=== PATIENT | male | born 1980 | race Caucasian/White ===

== ENCOUNTER → 2024-04-21 12:03 | Outpatient (BNVA) | payer OTHER, SELFPAY | PROVIDERS: Visit Provider Registered Nurse | DX: S86.911A Strain of unspecified muscle(s) and tendon(s) at lower leg level, right leg, initial encounter (principal); X58.XXXA Exposure to other specified factors, initial encounter | CPT/HCPCS: 99203 ==

== ENCOUNTER → 2024-04-26 09:47 | Outpatient (BNVA) | payer OTHER, SELFPAY | PROVIDERS: Visit Provider Registered Nurse | DX: S86.211A Strain of muscle(s) and tendon(s) of anterior muscle group at lower leg level, right leg, initial encounter (principal); X58.XXXA Exposure to other specified factors, initial encounter | CPT/HCPCS: 99214 ==

== ENCOUNTER → 2024-05-10 14:40 | Outpatient (BNVA) | payer OTHER, SELFPAY | PROVIDERS: PCP Specialist; Visit Provider Registered Nurse | DX: S86.911D Strain of unspecified muscle(s) and tendon(s) at lower leg level, right leg, subsequent encounter (principal); S93.401D Sprain of unspecified ligament of right ankle, subsequent encounter; X58.XXXD Exposure to other specified factors, subsequent encounter | CPT/HCPCS: 99213 ==

== ENCOUNTER → 2024-05-26 15:01 | Outpatient (BNVA) | payer OTHER, SELFPAY | PROVIDERS: PCP Specialist; Visit Provider Registered Nurse | DX: S86.111D Strain of other muscle(s) and tendon(s) of posterior muscle group at lower leg level, right leg, subsequent encounter (principal); S93.401D Sprain of unspecified ligament of right ankle, subsequent encounter; X58.XXXD Exposure to other specified factors, subsequent encounter | CPT/HCPCS: 99213 ==

== ENCOUNTER → 2024-06-07 15:09 | Outpatient (BNVA) | payer OTHER, SELFPAY | PROVIDERS: PCP Specialist; Visit Provider Registered Nurse ==

== ENCOUNTER → 2024-06-08 11:25 | Outpatient (BNVA) | payer OTHER, SELFPAY | PROVIDERS: PCP Specialist; Visit Provider Registered Nurse | DX: S76.311D Strain of muscle, fascia and tendon of the posterior muscle group at thigh level, right thigh, subsequent encounter (principal); S93.401D Sprain of unspecified ligament of right ankle, subsequent encounter; X58.XXXD Exposure to other specified factors, subsequent encounter | CPT/HCPCS: 99213 ==

== ENCOUNTER 2024-06-21 14:00 | Outpatient (RCR) | payer OTHER, SELFPAY ==
--- NOTE | 2024-05-17 16:37 | MHC.PT.EP ---
[facility] [place] Office [place] Office [place] Office [address] [place] [address] [phone] F: [phone] F: [phone] F: [phone] F: [phone] Physical Therapy Plan of Care Date of Evaluation: 05/17/24 Date of Surgery: Diagnosis: RIGHT calf/ankle strain Assessment: PT order received for worker's compensation R calf strain by Azra Knowles PA-C. Pt tolerated pt session well. Pt presents w/ R calf strain d/t cutting/running during a field day with likely muscle strain occurring due to presentation and reduced muscle bulk. Pain increases w/ prolonged activity like walking and hiking and typically takes 2 days to go away. ROM assessment reveals reduced R dorsiflexion, plantarflexion, and inversion. PT was also slightly weaker on R side for ankle strength, and was weak bilaterally for gastroc/soleus strength. Gait assessment revealed overpronation which may be contributing to strain on pt's ankle. Pt was shown gastroc stretches, 4 way ankle strengthening, and towel scrunches, which he was able to complete, but d/t weakness in ankle strength was regressed to YTB for HEP. Session was ended with manual therapy/massage of L ankle/calf which revealed TP especially on medial calf/soleus, additionally mild swelling/discoloration was visible in R ankle/calf. Future sessions will address gait compensations, strengthen foot intrinsic muscles, and improve calf/soleus strength as pt's pain allows. Frequency and Duration: The patient will be seen 2x/week for 6 weeks Short Term Goals: -In 2 weeks, pt will improve R dorsiflexion to 5 degrees to demonstrate reduced tightness in calves to restore normalized gait pattern. -In 2 weeks pt will be able to successfully complete calf raise on R foot to demonstrate improved push off phase of gait -In 2 weeks pt will report pain no higher than 3/10 at worst to allow for participation in recreational activities (working out, hiking). 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 -In 6 weeks pt will have 5/5 strength for B LE to allow him to complete households duties (cooking, cleaning, etc.) Treatment Plan: Modalities to reduce pain, spasms and effusion. Manual therapy to restore motion and function. Therapeutic exercise to improve strength and flexibility. Neuromuscular re-education for posture and balance. Therapeutic activities to return to functional activities of daily living. Electronically signed by: Fay Randolph, PT, DPT Please sign and return to therapist. Thank you for your referral.
--- NOTE | 2024-07-26 09:56 | MHC.PT.DC ---
[facility] [place] Office [place] Office [place] Office [address] [place] 140 [facility] [phone] F: [phone] F: [phone] F: [phone] F: [phone] Physical Therapy Discharge Report Diagnosis: RIGHT calf/ankle strain Date of Surgery: Date of Evaluation: 05/17/24 Date of Discharge: 07/26/24 Treatments to Date: 10 Cancellations to Date: 0 No Shows to Date: 0 Discharge Status: Achieved Goals Improved Function Independent with HEP Patient Elected to Stop Discharge Summary: Case's last PT session on 06/21/24 the assessment reads, No px w/lt jogging today. Pt met all goals AROM R ANKLE N ALL MVTS STRENGTH 5/5 ALL MVTS He is therefore discharged from PT. Electronically signed by: Fay Randolph, PT, DPT Please sign and return to therapist. Thank you for your referral.
== END 2024-07-26 09:56 | disposition home or self-care (01) ==
LOC: HO.PT 14:00
PROVIDERS: PCP Specialist; Visit Provider Registered Nurse
DX: S96.911D Strain of unspecified muscle and tendon at ankle and foot level, right foot, subsequent encounter (principal); S86.911D Strain of unspecified muscle(s) and tendon(s) at lower leg level, right leg, subsequent encounter
CPT/HCPCS: 97035; 97110; 97112; 97140; 97161; 97530; 97535

== ENCOUNTER → 2024-06-22 14:02 | Outpatient (BNVA) | payer OTHER, SELFPAY | PROVIDERS: PCP Specialist; Visit Provider Registered Nurse | DX: S86.911D Strain of unspecified muscle(s) and tendon(s) at lower leg level, right leg, subsequent encounter (principal); S93.401D Sprain of unspecified ligament of right ankle, subsequent encounter; X58.XXXD Exposure to other specified factors, subsequent encounter | CPT/HCPCS: 99213 ==

== ENCOUNTER 2025-08-04 09:55 | Day surgery (SDC) | payer BC, SELFPAY ==
--- OUTSIDE RECORDS SUMMARY | 2025-08-03 11:23 | XMS_ITS | Clinical Summary ---
Author Organization [facility] Address [address] [place] [id number] Care Team Providers Care Automatic Dispenser Mechanic Name Role Phone Yuri Simpson MD Primary Care Provider Allergies No known active allergies Medications Medication Sig Dispensed Refills Start Date End Date Status Clindamycin-Benzoyl Per-Hyalur (BENZACLIN CARE EX) Apply topically. 0 Active clindamycin-benzoyl peroxide (BENZACLIN) gel Apply topically 2 (two) times a day. 50 g 3 06/03/2021 Active zolpidem (Ambien) 10 MG tablet Take 1 tablet (10 mg total) by mouth every night at bedtime as needed for sleep. 90 tablet 1 06/03/2021 Active Active Problems No known active problems Social History Tobacco Use Types Packs/Day Years Used Date Smoking Tobacco: Former Smokeless Tobacco: Never Alcohol Use Standard Drinks/Week Comments Yes 0 (1 standard drink = 0.6 oz pur e alcohol) occ Sex and Gender Information Value Date Recorded Sex Assigned at Not on file Gender Identity Not on file Sexual Orientation Not on file Last Filed Vital Signs Vital Sign Reading Time Taken Comments Blood Pressure 148/100 06/03/2021 11:55 AM EDT Pulse 84 06/03/2021 11:55 AM EDT Temperature 36.6 C (97.9 F) 06/03/2021 11:55 AM EDT Respiratory Rate - - Oxygen Saturation 98% 06/03/2021 11:55 AM EDT Inhaled Oxygen Concentration - - Weight 95.3 kg (210 lb) 06/03/2021 11:55 AM EDT Height - - Body Mass Index - - Plan of Treatment Health Maintenance Due Date Last Done Comments Hepatitis B Vaccines (1 of 3 - 3-dose series) 1982 Hepatitis C Screening 1982 COVID-19 Vaccine (#1) 04/20/1983 Depression Screening 1994 Preventative Health Evaluation 2000 DTap / Tdap / Td (1 - Tdap) 2001 Influenza Vaccine (#1) 2025 Pneumococcal Vaccine Aged Out No long er eligible based on patient's age to complete this topic RSV Ped < 20 months Aged Out No longe r eligible based on patient's age to complete this topic Care Teams Automatic Dispenser Mechanic Relationship Specialty Start Date End Date Yuri Simpson MD PCP - General Family Medicine 01/17/19
--- OUTSIDE RECORDS SUMMARY | 2025-08-03 11:23 | XMS_ITS | Clinical Summary ---
Author Organization [facility] Address [address] [address] Phone Care Team Providers Care Hearing Aid Consultant Name Role Phone Yuri Simpson MD Primary Care Provid er Allergies No known active allergies Medications zolpidem (AMBIEN) 10 mg tablet Take 10 mg by mouth. 06/03/2021 Active Active Problems No known active problems Immunizations Immunization Administration Dates Next Due Influenza Quadrivalent Preservative Free IM 08/30,09/10/2020 Social History Tobacco Use Types Packs/Day Years Used Date Smoking Tobacco: Former Smokeless Tobacco: Never Tobacco Cessation:Counseling Given: Not Answered Education Answer Date Recorded Are you interested in more education? Not on perla e 03/28/2023 Are you concerned about learning? Not on file 03/28/2023 No 03/28/2023 No 03/28/2023 Digital Access Answer Date Recorded No 04/26/2023 No 04/26/2023 Reliable internet access at home? Not on file 04/26/2023 Device with a working camera? Not on file Sex and Gender Information Value Date Recorded Sex Assigned at Not on file Legal Sex Male 3:04 PM EDT Gender Identity Not on file Sexual Orientation Not on file Last Filed Vital Signs Vital Sign Reading Time Taken Comments Blood Pressure 138/84 12/13/2023 2:50 PM EST Pulse 84 12/13/2023 2:50 PM EST Temperature 37.3 C (99.1 F) 12/13/2023 2:39 PM EST Respiratory Rate 20 12/13/2023 2:39 PM EST Oxygen Saturation 98% 12/13/2023 2:50 PM EST Inhaled Oxygen Concentration - - Weight - - Height 182.9 cm (6') 03/13/2022 3:51 PM EDT Body Mass Index - - Plan of Treatment Health Maintenance Due Date Last Done Comments Adult Td,Tdap Booster 1982 DEPRESSION SCREENING 1994 SMOKING Hx and SMOKELESS TOBACCO SCREENING 1995 HEPATITIS C SCREENING 2000 HIV ONE-TIME SCREENING (18-65 YEARS) 2000 COVID-19 VACCINE (2023-25 season) 2024 12/05/2022, 02/28/2022, 03/15/2021, Additional history exists LIPID PANEL 06/07/2026 06/07/2021 HEPATITIS A VACCINES Aged Out No long er eligible based on patient's age to complete this topic HIB VACCINES Aged Out No longer eligi ble based on patient's age to complete this topic MENINGOCOCCAL VACCINES (ACWY) Aged Out No longer eligible based on patient's age to complete this topic MENINGOCOCCAL VACCINES (B) Aged Out N o longer eligible based on patient's age to complete this topic PNEUMOCOCCAL VACCINES (0-49 years) Aged Out No longer eligible based on patient's age to complete this topic Medical Devices Not on file Insurance [facility] [address] [place], [place] [address]S [facility] Member Subscriber Plan / Payer (Ef fective 2021-Present) Name:Case Melara Relation to Subscriber:Self Name:Case Melara Payer ID:Not on file Type:PPO Address: [place] [id number] Care Teams Hearing Aid Consultant Relationship Specialty Start Date End Date Yuri Simpson MD PCP - General Internal Medicine 03/13/22 Additional Source Comments The information contained in this document represents components of the legal health record. It is not the complete legal health record.[facility]
--- OUTSIDE RECORDS SUMMARY | 2025-08-03 11:23 | XMS_ITS ---
Author Name [facility] Organization Unknown Encounters Encounter Type Encounter Reason Primary Diagnosis Location Date Ambulatory [facility] 09/09/2024 Care Team Organization Name Specialty Phone Email Start Date End Da te [facility] 2024
--- OUTSIDE RECORDS SUMMARY | 2025-08-03 11:23 | XMS_ITS | Patient Health Record ---
Author Organization [facility] Address [address] [place] [address] Care Team Providers Care Group Counselor Name Role Phone NONE, NONE Primary Care Provider Loco Barrera Jr Unavailable Allergies Allergen (clinical drug ingredient) Drug/Non Drug Allergy documented on EMR Reaction Allergy Type Onset Date Status seasonal (uncoded) Unknown Allergy A ctive Reason For Referral No Information Medications Medication SIG (Take, Route, Frequency, Duration) Notes Start Date End Date Status Pantoprazole Sodium 40 MG 1 tablet 1/2 t o 1 hour before morning meal Orally Once a day for 30 days 07/26/2025 Active Benadryl 07/26/2025 Active Immunizations Vaccine Route Administration Date Status Comme nts Influenza Unknown 07/26/2025 Refused Social History Tobacco Use: Social History Observation Description Date Details (start date - stop date) Never Smoker NA - NA Tobacco Control (Standard) Question Answer Notes Tobacco use: Nonsmoker AUDIT-C (Standard) Question Answer Notes Did you have a drink containing alcohol in the p ast year? No Points 0 Interpretation Negative Problems Problem Type SNOMED Code ICD Code Onset Dates Problem Status W/U Status Risk Notes Problem Epigastric pain (04088789) Epigastric abdominal pain (R10.13) Active confirmed Problem Rectal bleeding (93533840) Rectal bleeding (K62.5) Active confirmed Problem Gastroesophageal reflux disease (886930133) GERD (gastroesophag eal reflux disease) (K21.9) Active confirmed Vital Signs Temperature 98.9 degrees Fahrenheit 07/26/2025 Blood pressure diastolic 01 mm Hg 07/26/2025 Height 72 in 07/26/2025 Blood pressure systolic 001 mm Hg 07/26/2025 Weight 245 lbs 07/26/2025 BMI 33.22 kg/m2 07/26/2025 Encounters Encounter Location Date Provider Diagnosis [facility] [address] [place] [address] 07/26/2025 Locomiri Dasilva Jr GERD (gastroesophageal reflux disease) K21.9 ; Epigastric abdominal pain R10.13 and Rectal bleeding K62.5 Assessments Encounter Date Diagnosis (ICD Code) Assessment Notes Treatment Notes Treatment Clinical Notes Section Notes 07/26/2025 Epigastric abdominal pain (ICD-10 - R10.13) We discussed his symptoms today. We recommended a trial of pantoprazole and prescribed this for him so he does not have to bother his mother to take it. We discussed gastroesophageal reflux disease today, including diet, lifestyle modifications, and weight management. Because of his rectal bleeding and black stools he should also undergo colonoscopy as well as upper endoscopy. We discussed risks and benefits of both procedures today. We will review his outside records from his ER visit. He did ask for prescription for Ambien today and we discussed that this is not something that is provided through our office and he will have to establish with a primary care doctor to discuss this. He understands this. 07/26/2025 GERD (gastroesophag eal reflux disease) (ICD-10 - K21.9) We discussed his symptoms today. We recommended a trial of pantoprazole and prescribed this for him so he does not have to bother his mother to take it. We discussed gastroesophageal reflux disease today, including diet, lifestyle modifications, and weight management. Because of his rectal bleeding and black stools he should also undergo colonoscopy as well as upper endoscopy. We discussed risks and benefits of both procedures today. We will review his outside records from his ER visit. He did ask for prescription for Ambien today and we discussed that this is not something that is provided through our office and he will have to establish with a primary care doctor to discuss this. He understands this. 07/26/2025 Rectal bleeding (ICD-10 - K62.5) We discussed his symptoms today. We recommended a trial of pantoprazole and prescribed this for him so he does not have to bother his mother to take it. We discussed gastroesophageal reflux disease today, including diet, lifestyle modifications, and weight management. Because of his rectal bleeding and black stools he should also undergo colonoscopy as well as upper endoscopy. We discussed risks and benefits of both procedures today. We will review his outside records from his ER visit. He did ask for prescription for Ambien today and we discussed that this is not something that is provided through our office and he will have to establish with a primary care doctor to discuss this. He understands this. Plan Of Treatment Future Test Test Name Order Date UPPER GI ENDOSCOPY 07/26/2025 COLONOSCOPY 07/26/2025 Next Appt Details Provider Name:Loco ambriz Jr, 08/04/2025 11:50:00 AM, [address] [place] [address] , [place], [place], [phone], Insurance Providers Payer Name Payer Address Payer Phone Subscriber Number Group Number Insured Name Patient Relationship to Insured Coverage Start Date Coverage End Date [facility] [address] [place] [address] [id number] PORFIRIO PARADA Self - patient is the insured Medical (General) History Medical History History ICD Code Hypertension
--- NOTE | 2025-08-03 12:13 | HO.ANESPROP2 ---
Documented by User: Marietta Woodward NP 08/03/25 12:14 HPI - Anesthesia Eval Consult details Narrative: 44yo M for Upper Endoscopy and Colonoscopy [facility] Past Medical History Medical History H/O gastroesophageal reflux (GERD) Surgical History Surgical History H/O wisdom tooth extraction Social History Social History Patient Tobacco Use Status: Former Tobacco user Meds Allergies Allergy/AdvReac Type Severity Reaction Status Date / Time No Known Allergies Allergy Unverified 08/16/20 15:31 Home Medications ?Medication ?Instructions ?Recorded ?Confirmed ?Last Taken ?Type tadalafil 10 mg tablet 10 mg PO NEEDED 08/03/25 08/04/25 Unknown History hydroxyzine HCl 25 mg tablet 25 mg PO QID PRN anxiety 08/04/25 08/04/25 Unknown History pantoprazole 40 mg tablet,delayed 40 mg PO QAM 08/04/25 08/04/25 Unknown History release Assessment and Plan Assessment Anesthesia Assessment: Chart Reviewed Documented by User: Magalys Ruiz MD 08/04/25 11:08 [facility] Past Medical History Medical History H/O gastroesophageal reflux (GERD) Surgical History Surgical History H/O wisdom tooth extraction History of Problems with Anesthesia: No Social History Social History Patient Tobacco Use Status: Former Tobacco user Meds Allergies Allergy/AdvReac Type Severity Reaction Status Date / Time No Known Allergies Allergy Unverified 08/16/20 15:31 Home Medications ?Medication ?Instructions ?Recorded ?Confirmed ?Last Taken ?Type tadalafil 10 mg tablet 10 mg PO NEEDED 08/03/25 08/04/25 Unknown History hydroxyzine HCl 25 mg tablet 25 mg PO QID PRN anxiety 08/04/25 08/04/25 Unknown History pantoprazole 40 mg tablet,delayed 40 mg PO QAM 08/04/25 08/04/25 Unknown History release Exam Airway Mallampati Class: III TM Dist: >3cm Neck ROM: Full Loose/Missing/Broken Teeth: No Heart: RRR Lungs: CTA Assessment and Plan Assessment Anesthesia Assessment: Anesthesia Plan Discussed Final Anesthetic Review History of Problems with Anesthesia: No NPO: Yes ASA Class: II Final Preanesthetic Review: Meds/Allgs Chart Reviewed, Consent Obtained/Reviewed and Anes Risks/Benef Reviewed Patient Risk: Low Procedure Risk: Intermediate Anesthetic Plan Anesthetic Plan: MAC: Disposition: Standard PACU
[2025-08-04 10:03] VITALS: BMI 33.1
[2025-08-04 10:24] VITALS: BP 143/95; PULSE 80; RESP 16; TEMP 36.8; O2SAT 95
[2025-08-04] MEDS: Lactated Ringers 1,000 ML 100 ML IVCONT (10:29)
--- NOTE | 2025-08-04 10:50 | MHC.SHP ---
Pre-Procedural Eval Section A - 24 Hr Update-Section A only Date of Service: 08/04/25 The patient is an INPATIENT: No Changes since office visit: No Cold of Flu in the past 2 weeks, No New Medical Problems, No Changes in Medication and No Patient answered all questions The patient has been examined within 24 hours of the surgical procedure. The History & Physical has been completed within 30 days and I have reviewed it.: Yes Section B - Complete if H&P > 30 days Chief Complaint: gerd,rectal bleeding,epigastric pain Allergies: Allergies Allergy/AdvReac Type Severity Reaction Status Date / Time No Known Allergies Allergy Unverified 08/16/20 15:31 Plan I have reviewed the history and physical and performed a pertinent physical examination on my patient. No changes have occurred unless specified. Time Spent With Patient Time: Total time managing care of this patient today ____ minutes.
[2025-08-04 11:30] VITALS: BP 108/64; PULSE 72; RESP 18; TEMP 36.5; O2SAT 99
[2025-08-04 11:44] VITALS: BP 125/73; PULSE 74; RESP 16; O2SAT 99
[2025-08-04 12:00] VITALS: BP 132/78; PULSE 71; RESP 16; TEMP 36.4; O2SAT 98
--- NOTE | 2025-08-04 12:30 | OP_ITS ---
DATE OF SERVICE: 08/04/2025 SURGEON: Loco Dasilva MD INDICATIONS: Gastroesophageal reflux disease, abdominal pain, and rectal bleeding. PREOPERATIVE DIAGNOSIS: POSTOPERATIVE DIAGNOSIS: PROCEDURE PERFORMED: Upper endoscopy with biopsy, colonoscopy to the terminal ileum with biopsy. ESTIMATED BLOOD LOSS: COMPLICATIONS: ANESTHESIA: Monitored anesthesia care. ASSISTANTS: SPECIMENS: DESCRIPTION OF PROCEDURE: A history and physical was performed. The risks and benefits of the procedure were explained to the patient, and informed consent was obtained. The patient was placed in the left lateral decubitus position. The Olympus video gastroscope was introduced into the esophagus, stomach, and duodenum. Examination was performed. The scope was removed. He was repositioned for colonoscopy. A digital rectal exam was performed and was found to be normal. The Olympus pediatric video colonoscope was introduced into the rectum and advanced to the cecum. The cecum was identified by transillumination, palpation, and identification of ileocecal valve. Examination was performed. The scope was removed. He tolerated both procedures well and was returned to the recovery area in stable condition. FINDINGS: Upper endoscopy: 1. Esophagus: The esophagus showed an irregular EG junction. This was biopsied. There was a nonobstructive Schatzki ring and a small sliding hiatal hernia. 2. Stomach: The stomach showed no evidence of masses, ulcers, or polyps. 3. Duodenum: The bulb and 2nd portion were normal. Biopsies were obtained from the EG junction and from the antrum. Colonoscopy: The terminal ileum was normal. The visualized colonic mucosa was normal. The quality of the prep was good. There was some minor nonspecific erythema in the rectum, but no evidence of colitis. Biopsies were obtained from the rectum. Retroflexed examination was normal. IMPRESSION: 1. Gastroesophageal reflux disease. 2. Normal colonoscopy. RECOMMENDATION: 1. Follow up the biopsy results. 2. Repeat colonoscopy is recommended in 10 years for average-risk individuals. MD SUYAPA Egan/MARKL / [id number]
== END 2025-08-04 12:22 | disposition home or self-care (01) ==
PROVIDERS: Visit Provider Internal Medicine Gastroenterology
PROC: (CPT 45380; principal; 2025-08-04 11:50)
DX: K62.5 Hemorrhage of anus and rectum (principal); R10.13 Epigastric pain; K21.9 Gastro-esophageal reflux disease without esophagitis; K22.89 Other specified disease of esophagus; K29.50 Unspecified chronic gastritis without bleeding; B96.81 Helicobacter pylori [H. pylori] as the cause of diseases classified elsewhere; K22.2 Esophageal obstruction; K44.9 Diaphragmatic hernia without obstruction or gangrene; I10 Essential (primary) hypertension; Z79.899 Other long term (current) drug therapy; Z87.891 Personal history of nicotine dependence
CPT/HCPCS: 45380; 43239; 88305; 88313; 88342; J2003; J2250; J2704

== ENCOUNTER 2025-08-29 15:34 | Outpatient (REF) | payer BC, SELFPAY ==
[2025-08-29 17:21] LABS: Mean Corpuscular HGB Conc 35.1 g/dl (31.0-36.0); Mean Corpuscular Hemoglobin 30.3 pg (27.0-33.0); Mean Corpuscular Volume 86.3 fL (80.0-98.0); NRBC Abs Auto 0.000 X10*3/uL (0.0-0.012); NRBC Pct Auto 0.0 /100WBC (0.0-0.2); PLT CLUMP 1; SCAN SMEAR FLAG 1
[2025-08-29 17:23] LABS: Hematocrit 43.6 % (42.0-52.0); Hemoglobin 15.3 g/dl (14.0-18.0); Imm Gran Abs Auto 0.02 X10*3/uL (0.00-0.03); Imm Gran Pct Auto 0.3 % (0.0-0.4); Lymphocytes Absolute Auto 1.9 X10*3/uL (1.2-4.9); MANUAL DIFF FLAG SCAN; Red Blood Count 5.05 X10*6/uL (4.60-5.80)
[2025-08-29 17:38] LABS: White Blood Count 7.0 X10*3/uL (4.8-10.8)
[2025-08-29 17:45] LABS: Alanine Aminotransferase 52 U/L (0-40); Albumin Level 5.0 g/dL (3.5-5.0); Alkaline Phosphatase 52 U/L (39-117); Anion Gap 15 (12-20); Aspartate Amino Transferase 54 U/L (5-37); Blood Urea Nitrogen 12 mg/dL (9-16); Calcium 9.4 mg/dL (8.4-10.2); Carbon Dioxide 22 mmol/L (22-29); Chloride 106 mmol/L (96-108); Cholesterol 164 mg/dL (<200); Estimated Glomerular Filt Rate > 60; HDL Cholesterol 44 mg/dL (>40); Potassium 4.0 mmol/L (3.3-5.1); Sodium 139 mmol/L (135-145); Total Protein 7.6 g/dL (6.5-8.0); Triglycerides 103 mg/dL (<150)
[2025-08-30 04:59] LABS: Syphilis Screen Nonreactive (Nonreactive)
[2025-08-30 05:51] LABS: HBc Num1 0.05 S/CO (0.00-0.79); HBsAGNum1 0.31 S/CO (0.00-0.99); HIV Num 1 0.05 S/CO (0.00-0.99); Hepatitis A Antibody IgM 0.16 Index (0-0.79); Hepatitis B Surface Antigen Negative (Negative); ~HepC Num1 0.11 S/CO (0.00-0.79); ~Hepatitis A Antibody IgM Nonreactive (Nonreactive); ~Hepatitis B Surface Antibody REACTIVE (Nonreactive); ~Hepatitis C Antibody Nonreactive (Nonreactive)
== END 2025-08-29 15:35 | disposition home or self-care (01) ==
LOC: HO.LAB 15:34
PROVIDERS: PCP Student in an Organized Health Care Education/Training Program; Visit Provider Student in an Organized Health Care Education/Training Program
DX: K21.00 Gastro-esophageal reflux disease with esophagitis, without bleeding (principal); Z76.89 Persons encountering health services in other specified circumstances; F51.01 Primary insomnia; I10 Essential (primary) hypertension
CPT/HCPCS: 36415; 80053; 80061; 82306; 83036; 84443; 85025; 86704; 86706; 86709; 86780; 86803; 87340; 87389; 96127

== ENCOUNTER 2025-08-29 15:34 | Outpatient (AMB) | payer BC, SELFPAY ==
--- OUTSIDE RECORDS SUMMARY | 2025-08-04 07:50 | XMS_ITS ---
Author Organization [facility] Address [address] [facility] [address] [place] [address] Care Team Providers Care Home Health Speech Therapist Name Role Phone NONE, NONE Primary Care Provider Loco Barrera Jr [phone] REASON FOR VISIT gerd,epigastric pain,rectal bleeding Encounters Encounter Location Date Provider Diagnosis [facility] Outpatient [address] [place] [id number] 08/04/2025 Loco Dasilva Jr Plan Of Treatment Next Appt Details Provider Name:Loco ambriz Jr, 01/04/2026 03:55:00 PM, [address] [facility], [address] [facility], [place], [address], Progress Notes * TLPORFIRIO RIOSDOB:1980 (44 yo M)Acc No.[id number]:08/04/2025 EGD and COL/MAC Patient: PORFIRIO KEMP Provider: Leeann Dasilva MD :1980 A ge:44 Y S ex:Male Date:08/04/2025 Address:[address] [place] [address] Subjective: * Chief Complaints: * 1 . Gerd,epigastric pain,rectal bleeding. * Medical History: Objective: * Vitals: Assessment: Plan: * Treatment: * * The named appointment provid er may or may not be the originator of this progress note, and it is not deemed complete until electronically signed by the appointment provider. Sign off status: Pending * Provider: Leeann Dasilva MD Date: 0 08/04/2025 Generated for Meghan obando/Mala/Taranitting on: 0 08/29/2025 04:49 PM EDT
--- NOTE | 2025-08-29 14:42 | A.OFFPC_ITS ---
Vital Signs 08/29/25 15:39 Height 6 ft Weight 245 lb BMI 33.2 BP 154/102 H Blood Pressure Location Lt brachial Position Sitting Respiration 18 Pulse 83 Pulse Source Pulse Oximeter Temp 98.3 F Temp Source Temporal Artery Scan Pulse Oximetry (%) 99 Oxygen Delivery Method Room Air Intake Visit Reasons: New patient Starchmaker Required: No Accompanied by: Self / Same As Patient Allergies No Known Allergies Allergy (Verified 08/29/25 14:43) Medication List - Last Reconciled 08/29/25 by Lloyd Everett MD hydroxyzine HCl 25 mg PO QID PRN pantoprazole 40 mg PO QAM [probiotics PO .qd] tadalafil 5 mg PO DAILY Tobacco use date assessed: 08/29/25 Dental Screening Dental Screen Date: 08/29/25 Did you have a dental visit in the last 12 months?: No Did you have a dental problem in the last 6 months where you did not have access to dental care?: No Was dental information given to patient?: Patient has dentist HPI HPI Comments History of Present Illness Details The patient is a 44-year-old male presenting with persistent insomnia and gastroesophageal reflux disease management concerns. The insomnia began several years ago but has worsened, impacting the patient's quality of life. He reports previous dependence on Ambien in his 20s but discontinued use seven years ago. The patient states he has tried melatonin at various doses, but it has not consistently improved his sleep quality. He has attempted behavioral strategies like sleep hygiene without significant improvement. At times, he resorted to using marijuana to aid sleep, but found it unsatisfactory as it impacted his overall well-being. The patient has been dealing with GERD for several years, exacerbated by weight gain approximately four years ago. He underwent an endoscopy and colonoscopy with a biopsy indicating Helicobacter pylori, successfully treated with antibiotics. He reports ongoing use of pantoprazole, even though he still experiences discomfort post-antibiotics. There is reported improvement due to pantoprazole but continued struggle with symptoms possibly due to diet or weight-related issues. He also discusses a familial predisposition to heightened cardiovascular risk, with both parents having a history of hypertension and hyperlipidemia. This may contribute to current health maintenance, as his blood pressure measurement today showed elevated values. Medical History: - Insomnia with past dependence on hypno tics - Gastroesophageal Reflux Disease with p ast H. pylori infection treated with antibiotics - Obesity, exacerbated over the past fou r years - History of elevated blood pressure sravanthi gusman Surgical History: - Endoscopy - Colonoscopy with biopsy Medications: - Pantoprazole 40 mg once daily for GERD - Hydroxyzine 25 mg as needed for sleep disturbances Family History: - Paternal uncle with possible intestina l cancer - Paternal grandmother with stomach canc er - Both parents with hypertension and hyp ercholesterolemia - Father with a history of stents placem ent due to heart disease Diagnostic Results: - Endoscopy and colonoscopy with biopsy: positive for H. pylori - Treatment: Successful eradication of H . pylori with antibiotics Social: - Employed as a teacher - , living with spouse - Stopped alcohol consumption four years ago, now occasional consumption - Non-tobacco user, past use of marijuan a for sleep but discontinued - Regular exercise routine includes runn ing - Diet mainly composed of non-processed foods, limited intake of processed food and restaurant dining - Engages in self-management efforts for weight reduction with limited success [facility] Medical History (Updated 08/29/25 @ 16:07 by Lloyd Everett MD) Hypertension Insomnia GERD (gastroesophageal reflux disease) H/O gastroesophageal reflux (GERD) Surgical History H/O wisdom tooth extraction Social History Housing: House Patient Tobacco Use Status: Former Tobacco user Tobacco use type: Cigarette Years Smoked: 10-15 years e-Cigarette/Vaping Use: Never Used service: No Current occupational status: employed 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 1. Little interest or pleasure in doing things: not at all 2. Feeling down, depressed, or hopeless: not at all 3. Trouble falling or staying asleep, or sleeping too much: not at all 4. Feeling tired or having little energy: not at all 5. Poor appetite or overeating: not at all 6. Feeling bad about yourself - or that you are a failure or have let yourself or your family down: not at all 7. Trouble concentrating on things, such as reading the newspaper or watching television: not at all 8. Moving or speaking so slowly that other people could have noticed. Or the opposite - being so fidgety or restless that you have been moving around a lot more than usual: not at all 9. Thoughts that you would be better off or of hurting yourself in some way: not at all Total score: 0 Depression Screening Interpretation: Negative Depression Screening Done: Yes 88685 - PHQ-9 Billing: Yes Source: Developed by Drs. Aden Chavez, Steph Mak, Martin Colon and colleagues, with an educational eduard from its learning. Thrive Questionnaire Date Thrive assessed: 08/29/25 I am a: Patient What is your living situation today?: I have a steady place to live Within the past 12 months, did the food you bought not last and you didn't have the money to get more?: Never true Within the past 12 months, did you worry whether your food would run out before you got money to buy more?: Never true Do you have trouble paying for medicines?: No Do you have trouble getting transportation to medical appointments?: No Do you have trouble paying your heating and electricity bill?: No Do you have trouble taking care of your child, family member or friend?: No Do you have trouble with day-to-day activities such as bathing, preparing meals, shopping, managing finances, etc.?: No Are you currently unemployed and looking for a job?: No Are you interested in more education?: No THRIVE Score: 0 AUDIT C Alcohol Use Questionnaire (AUDIT-C) 1. How often do you have a drink containing alcohol?: Monthly or less 2. How many drinks containing alcohol do you have on a typical day when you are drinking?: 1 or 2 3. How often do you have six or more drinks on one occasion?: Never Total Score: 1 Score Reviewed/Action Taken: Yes HARSHA-7 AMB Questionnaire HARSHA-7 Date HARSHA - 7 assessed: 08/29/25 Feeling nervous, anxious, or on edge: 0 = Not at all Not being able to stop or control worryin = Not at all Worrying too much about different things: 0 = Not at all Trouble relaxin = Not at all Being so restless that it is hard to sit still: 0 = Not at all Becoming easily annoyed or irritable: 0 = Not at all Feeling afraid as if something awful might happen: 0 = Not at all Total HARSHA-7 score (0-4 normal; 5-9 mild; 10-14 moderate; 15-21 severe): 0 Source: Developed by Drs. Aden Chavez, Steph Mak, Martin Colon and colleagues, with an educational eduard from its learning. HARSHA-7 Assessment Billing HARSHA-7 Assessment Tool: HARSHA-7 Assessment 21393 Review of Systems Const Details: - Constitutional: Reports difficulty with sleep - Gastrointestinal: Reports flare-ups of gastroesophageal reflux disease - Cardiovascular: Denies chest pain but reports episodic elevated blood pressure readings - Neurological: Reports past migraines - Psychiatric: Reports insomnia and situational stress and anxiety All systems reviewed & are unremarkable except as reviewed in HPI and above Physical exam (Primary Care) Vital Signs: Last Vital Signs Temp 98.3 F 08/29/25 15:39 Pulse 83 08/29/25 15:39 Resp 18 08/29/25 15:39 BP 154/102 H 08/29/25 15:39 Pulse Ox 99 08/29/25 15:39 Oxygen Delivery Method Room Air 08/29/25 15:39 BMI result Body Mass Index 33.2 Tobacco/Smoking Status: Tobacco use Status Tobacco use date assessed 08/29/25 08/29/25 14:43 Patient Tobacco Use Status Former Tobacco user 08/29/25 14:43 Tobacco use type Cigarette 08/29/25 15:43 e-Cigarette/Vaping Use Never Used 08/29/25 15:43 Depression Screening Interpretation: Negative Const Other: General: +Alert and oriented, Well nourished, No acute distress. Eye: Pupils are equal, round and reactive to light, Intact accommodation, Extraocular movements are intact, Normal conjunctiva, Vision unchanged. HENT: Normocephalic, Atraumatic, Tympanic membranes are clear, Normal hearing, Oral mucosa is moist, No pharyngeal erythema, Ear canals patent. Respiratory: Lungs CTA bilaterally, No wheeze, Respirations are non-labored. Cardiovascular: Regular rate, Regular rhythm, S1 auscultated, S2 auscultated, No murmur, Good pulses equal in all extremities, Normal peripheral perfusion, No edema. Gastrointestinal: Soft, Non-tender, Non-distended, Normal bowel sounds, No organomegaly. Musculoskeletal: Normal range of motion, Normal strength, No tenderness, No swelling, No deformity, Normal gait. Integumentary: Warm, Dry, Cutler, Intact. Neurologic: Alert, Oriented, Normal sensory, Normal motor function, No focal defects, Cranial Nerves II-XII are grossly intact, Normal deep tendon reflexes. Psychiatric: Cooperative, Appropriate mood & affect, Normal judgment, Reports issues with sleep, feels anxious due to work-related stress, acknowledges some mood problems. Coding Level of Care Code New Pt Level 4 (46873) Diagnoses Gastroesophageal reflux disease with esophagitis without hemorrhage K21.00 Esophagitis bleeding: without hemorrhage Esophagitis presence: with esophagitis Primary insomnia F51.01 Insomnia type: primary Primary hypertension I10 Hypertension type: primary hypertension Additional Codes PHQ-9 - 76932 - PHQ-9 Billing: Yes ([id number]) HARSHA-7 Assessment Billing - HARSHA-7 Assessment Tool: HARSHA-7 Assessment 88902 ([id number]) Assessment & Plan Assessment & Plan (1) GERD (gastroesophageal reflux disease): Comment: - Continue pantoprazole 40 mg once daily. - Discussed lifestyle modifications including diet and weight management as adjuncts. Code(s): K21.9 - Gastro-esophageal reflux disease without esophagitis Category: Medical Qualifiers: Esophagitis bleeding: without hemorrhage Esophagitis presence: with esophagitis Qualified Code(s): K21.00 - Gastro-esophageal reflux disease with esophagitis, without bleeding (2) Insomnia: Comment: - Encourage continuation of sleep hygiene practices. - Recommending trials of melatonin up to 10 mg as needed before bed to improve sleep onset. Code(s): G47.00 - Insomnia, unspecified Category: Medical Qualifiers: Insomnia type: primary Qualified Code(s): F51.01 - Primary insomnia (3) Hypertension: Comment: - Noted elevated blood pressure; advise monitoring pressures at home. - Review history of hypertension in the family as a risk factor. Code(s): I10 - Essential (primary) hypertension Category: Medical Qualifiers: Hypertension type: primary hypertension Qualified Code(s): I10 - Essential (primary) hypertension Plan: Health Maintenance: - Encouraged heart-healthy diet low in sodium to address familial cardiovascular risk. - Advised against processed foods. - Reinforced weight management through diet and exercise. - Emphasized continued abstinence from tobacco. - Regular follow-up screenings to monitor cholesterol, blood sugars, and thyroid levels. - Detailed lab works ordered include cholesterol panel, blood glucose, thyroid function, complete blood count, and electrolytes. Patient was informed and verbally consented to the use of an ambient scribe for clinic note documentation during this visit. Plan I reviewed the patient?s insomnia and ongoing GERD management. We discussed varying interventions, such as the continuation of pantoprazole for acid reflux and trials of melatonin for insomnia. We examined familial cardiovascular risks and his high blood pressure reading today. I advised dietary modifications and periodic monitoring of blood pressure at home. We covered potential improvements through lifestyle changes and reviewed the importance of these adjustments considering family history. The patient understood and consented to the outlined plan and showed a proactive approach toward his health. Orders: Orders Complete Blood Count Auto Diff Today Z76.89 - Persons encountering health services in other specified circumstances Hemoglobin A1c Today Z76.89 - Persons encountering health services in other specified circumstances Lipid Panel Today Z76.89 - Persons encountering health services in other specified circumstances Syphilis Screen Today Z76.89 - Persons encountering health services in other specified circumstances Vitamin D 25-OH Total Today Z76.89 - Persons encountering health services in other specified circumstances Comprehensive Met. Panel Today Z76.89 - Persons encountering health services in other specified circumstances Hepatitis A,B,C Profile Today Z76.89 - Persons encountering health services in other specified circumstances HIV Ab/Ag Today Z76.89 - Persons encountering health services in other specified circumstances TSH reflex Free T4 Today Z76.89 - Persons encountering health services in other specified circumstances Medications: New tadalafil 5 mg PO DAILY 30 tabs 3RF Patient Instructions: - Continue taking pantoprazole as prescribed for GERD. - Try melatonin before bed as needed to improve sleep. - Monitor your blood pressure at home and bring in readings during the next visit. - Maintain a balanced diet focusing on whole foods, and reduce salt intake. - Engage in regular physical activity, aim for healthy weight management. - Avoid tobacco products and limit alcohol consumption. - Follow up for lab work across the street today.
[2025-08-29 15:39] VITALS: BP 154/102; PULSE 83; RESP 18; TEMP 36.8; O2SAT 99; BMI 33.2
--- OUTSIDE RECORDS SUMMARY | 2025-08-29 16:49 | XMS_ITS | Clinical Summary ---
Author Organization [facility] Address [address] [place] [id number] Care Team Providers Care Arc And Gas Welder Name Role Phone Yuri Simpson MD Primary [...] age to complete this topic Care Teams Arc And Gas Welder Relationship Specialty Start Date End Date Yuri Simpson MD PCP - General Family Medicine 01/17/19
--- OUTSIDE RECORDS SUMMARY | 2025-08-29 16:49 | XMS_ITS | Patient Health Record ---
Author Organization [facility] Address [address] [place] [address] Care Team Providers Care Fire Prevention Chief Name Role Phone NONE, NONE Primary Care Provider Loco Barrera Jr Unavailable Allergies Allergen (clinical drug ingredient) Drug/Non Drug Allergy documented on EMR Reaction Allergy Type Onset Date Status seasonal (uncoded) Unknown Allergy A ctive Results Component Value Reference Range Notes Pathology Reviewed date:08/09/2025 02:40:54 PM Interpretation: Performing Lab:[facility], [address] [place] [id number] Notes/Report: Reason For Referral No Information Medications Medication SIG (Take, Route, Frequency, Duration) Notes Start Date End Date Status Pantoprazole Sodium 40 MG 1 tablet 1/2 t o 1 hour before morning meal Orally Once a day for 30 days 07/26/2025 Active Benadryl 07/26/2025 Active Tetracycline HCl 500 MG 1 Orally 4 times daily for 14 days 08/09/2025 Active metroNIDAZOLE 500 MG 1 tablet Orally Thr ee times a day for 14 days 08/09/2025 Active Bismuth Subsalicylate 525 MG 1 Orally 4 times daily for 14 days 08/09/2025 Active Immunizations Vaccine Route Administration Date Status [...] W/U Status Risk Notes Problem Epigastric pain (64350669) Epigastric abdominal pain (R10.13) Active confirmed Problem Rectal bleeding (75674629) Rectal bleeding (K62.5) Active confirmed Problem Gastroesophageal reflux disease (409726092) GERD (gastroesophag eal reflux disease) (K21.9) Active confirmed Vital Signs Temperature 98.9 degrees Fahrenheit 07/26/2025 Blood pressure diastolic 01 mm Hg 07/26/2025 Height 72 in 07/26/2025 Blood pressure systolic 001 mm Hg 07/26/2025 Weight 245 lbs 07/26/2025 BMI 33.22 kg/m2 07/26/2025 Encounters Encounter Location Date Provider Diagnosis [facility] [address] [place], [place] [id number] 08/04/2025 Loco Dasilva Jr [facility] [address] [place] [phone] 07/26/2025 Loco Dasilva Jr GERD (gastroesophageal reflux disease) K21.9 ; Epigastric abdominal pain R10.13 and Rectal bleeding K62.5 [facility] [address] [place] [phone] 08/09/2025 Loco Dasilva Jr H. pylori infection B96.81 Assessments Encounter Date Diagnosis (ICD Code) Assessment [...] doctor to discuss this. He understands this. 08/09/2025 H. pylori infection (ICD-10 - B96.81) 07/26/2025 Rectal bleeding (ICD-10 - K62.5) We [...] 07/26/2025 Next Appt Details Provider Name:Loco ambriz , 01/04/2026 03:55:00 PM, [address] [place] [address], [address], [place], [phone], Insurance Providers Payer Name Payer Address Payer Phone Subscriber Number Group Number Insured Name Patient Relationship to Insured Coverage Start Date Coverage End Date [facility] [address] [place] [address] [phone] [id number] PORFIRIO PARADA Self - patient is the insured Medical (General) History Medical History History ICD Code Hypertension
--- OUTSIDE RECORDS SUMMARY | 2025-08-29 16:49 | XMS_ITS | Clinical Summary ---
Author Organization Located [facility] Address [address] [address] Phone Care Team Providers Care Carpenter Supervisor Name Role Phone Yuri Simpson MD Primary [...] 2000 HIV ONE-TIME SCREENING (18-65 YEARS) 2000 INFLUENZA VACCINE (#1) 2025 , 09/16/2021, 09/10/2020 COVID-19 VACCINE ( season) 2025 12/05/2022, 02/28/2022, 03/15/2021, Additional history exists LIPID [...] topic Medical Devices Not on file Insurance S [facility] [place] [address] [place] [address] Member Subscriber Plan / Payer (Ef fective 2021-Present) Name:Case Melara Relation to Subscriber:Self Name:Case Melara Payer ID:Not on file Type:PPO Address: [place] [id number] Care Teams Carpenter Supervisor Relationship Specialty Start Date End Date Yuri Simpson MD PCP - General Internal Medicine 03/13/22 Additional Source Comments The information contained in this document represents components of the legal health record. It is not the complete legal health record.[facility]
== END 2025-08-29 16:07 | disposition home or self-care (01) ==
LOC: HO.HMCHD 15:34
PROVIDERS: PCP Student in an Organized Health Care Education/Training Program; Visit Provider Student in an Organized Health Care Education/Training Program
DX: K21.00 Gastro-esophageal reflux disease with esophagitis, without bleeding (principal); F51.01 Primary insomnia; I10 Essential (primary) hypertension